=== PATIENT | female | born 1980 | race Caucasian/White ===

== ENCOUNTER → 2017-12-18 | Outpatient (CLI) | payer OTHER | END | disposition home or self-care (01) | LOC: C.LABSPEC 13:02 | PROVIDERS: ATTEND Physician Assistant | DX: N94.10 Unspecified dyspareunia (principal) ==

== ENCOUNTER → 2017-12-18 | Outpatient (CLI) | payer OTHER | END | disposition home or self-care (01) | LOC: C.PAPS 13:47 | PROVIDERS: ATTEND Physician Assistant | DX: Z12.4 Encounter for screening for malignant neoplasm of cervix (principal) ==

== ENCOUNTER → 2017-12-29 | Outpatient (CLI) | payer OTHER | END | disposition home or self-care (01) | LOC: C.PAPS 15:31 | PROVIDERS: ATTEND Physician Assistant | DX: N94.10 Unspecified dyspareunia (principal); R10.2 Pelvic and perineal pain ==

== ENCOUNTER → 2018-01-12 | Outpatient (CLI) | payer OTHER | END | disposition home or self-care (01) | LOC: C.PATHSPEC 16:08 | PROVIDERS: ATTEND Physician Assistant | DX: Z30.432 Encounter for removal of intrauterine contraceptive device (principal); M79.9 Soft tissue disorder, unspecified ==

== ENCOUNTER → 2018-01-12 | Outpatient (CLI) | payer OTHER | END | disposition home or self-care (01) | LOC: C.LAB 11:44 | PROVIDERS: ATTEND Physician Assistant | DX: E03.9 Hypothyroidism, unspecified (principal) ==